=== PATIENT | female | born 1975 | race Caucasian/White ===

== ENCOUNTER 2017-07-21 12:02 | Day surgery (SDC) | payer BC ==
[~2017-07-21] VITALS: Ht 165.1 cm; Wt 99.8 kg
[~2017-07-21 12:02] MED LIST: CLARITIN-D 21 TABLET PO; FEOSOL325 MG PO; ONE DAILY WOME1 EACH PO
[2017-07-21 12:38] VITALS: BP 119/67
[2017-07-21 17:14] VITALS: BP 120/62
[2017-07-21 18:00] VITALS: BP 123/65
== END 2017-07-21 18:05 | disposition home or self-care (01) ==
LOC: SDC 12:02
DX: N92.0 Excessive and frequent menstruation with regular cycle (principal); J45.909 Unspecified asthma, uncomplicated
CPT/HCPCS: 88305; J1100; J1885; J2250; J2405; J3010